=== PATIENT | female | born 1980 | race Caucasian/White ===

== ENCOUNTER 2018-07-11 13:22 | Outpatient (CLI) | payer OTHER | END 2018-07-11 15:00 | disposition home or self-care (01) | LOC: OBT 13:22 → L-D 13:22 → OBT 15:00 | DX: O26.893 Other specified pregnancy related conditions, third trimester (principal); M25.562 Pain in left knee; O09.513 Supervision of elderly primigravida, third trimester; Z3A.29 29 weeks gestation of pregnancy | CPT/HCPCS: Z7500 ==

== ENCOUNTER 2018-09-15 19:44 | Outpatient (CLI) | payer OTHER ==
[2018-09-15 20:50] LABS: ADD MAN DIFF? NO
[2018-09-15 20:53] LABS: BASOPHILS % 0.3 % (0.0-2.0); EOSINOPHILS # 0.1 10^3/ul (0.0-0.5); EOSINOPHILS % 0.8 % (0.0-7.0); HEMATOCRIT 35.6 % (37.0-47.0); HEMOGLOBIN 11.9 g/dl (12.0-16.0); LYMPHOCYTES # 1.5 10^3/ul (0.8-2.9); LYMPHOCYTES % 23.7 % (15.0-51.0); MEAN CORPUSCULAR HGB CONC 33.4 g/dl (32.0-37.0); MEAN CORPUSCULAR VOLUME 92.7 fl (82.0-101.0); MEAN PLATELET VOLUME 10.1 fl (7.4-10.4); MONOCYTE # 0.4 10^3/ul (0.3-0.9); MONOCYTES % 6.9 % (0.0-11.0); NEUTROPHIL # 4.3 10^3/ul (1.6-7.5); NEUTROPHILS % 67.7 % (39.0-77.0); PLATELET COUNT 195 10^3/UL (140-415); RED BLOOD COUNT 3.84 10^6/ul (4.20-5.40)
[2018-09-15 20:53] LABS: WHITE BLOOD COUNT 6.4 10^3/ul (4.8-10.8)
[2018-09-15 20:54] LABS: ADD UMIC YES; UR ASCORBIC ACID NEGATIVE (NEGATIVE); UR BACTERIA FEW /HPF (NONE SEEN); UR BILIRUBIN (Dip) NEGATIVE (NEGATIVE); UR BLOOD (Dip) NEGATIVE (NEGATIVE); UR CLARITY CLEAR (CLEAR); UR COLOR YELLOW (YELLOW); UR GLUCOSE (Dip) NEGATIVE (NEGATIVE); UR KETONES (Dip) NEGATIVE (NEGATIVE); UR LEUKOCYTE ESTERASE (Dip) TRACE Leu/ul (NEGATIVE); UR NITRITE (Dip) NEGATIVE (NEGATIVE); UR RBC 0 /HPF (0-5); UR SPECIFIC GRAVITY (Dip) 1.011 (1.003-1.030); UR SQUAMOUS EPITHELIAL CELL FEW /HPF (FEW); UR TOTAL PROTEIN (Dip) NEGATIVE (NEGATIVE); UR UROBILINOGEN (Dip) 1+ mg/dL (NEGATIVE); UR WBC 1 /HPF (0-5)
[2018-09-15] MEDS: LIDOCAINE/MYLANTA 40 ML BTL PO (21:08)
[2018-09-15] MEDS: ACETAMINOPHEN 325 MG TAB PO (21:08)
[2018-09-15 21:10] LABS: ALANINE AMINOTRANSFERASE 19 IU/L (13-69); ALBUMIN 3.2 g/dl (3.3-4.9); ALBUMIN/GLOBULIN RATIO 0.96; ALKALINE PHOSPHATASE 161 IU/L (42-121); ANION GAP 8 (5-13); ASPARTATE AMINO TRANSFERASE 19 IU/L (15-46); BILIRUBIN,INDIRECT 0.3 mg/dl (0-1.1); BILIRUBIN,TOTAL 0.3 mg/dl (0.2-1.3); BLOOD UREA NITROGEN 11 mg/dl (7-20); CALCIUM 9.2 mg/dl (8.4-10.2); CARBON DIOXIDE 24 mmol/L (21-31); CHLORIDE 103 mmol/L (97-110); CREATININE 0.43 mg/dl (0.44-1.00); Estimated GFR > 60 mL/min (>60); GLUCOSE 110 mg/dl (70-220); POTASSIUM 3.6 mmol/L (3.5-5.1); SODIUM 135 mmol/L (135-144); TOTAL PROTEIN 6.5 g/dl (6.1-8.1); URIC ACID 3.2 mg/dl (3.1-7.9)
== END 2018-09-15 21:50 | disposition home or self-care (01) ==
LOC: OBT 19:44 → L-D 19:45 → OBT 21:50
DX: O26.893 Other specified pregnancy related conditions, third trimester (principal); R51 Headache; R10.13 Epigastric pain; O99.343 Other mental disorders complicating pregnancy, third trimester; F41.9 Anxiety disorder, unspecified; O09.513 Supervision of elderly primigravida, third trimester; Z3A.39 39 weeks gestation of pregnancy
CPT/HCPCS: 76818; 80053; 81001; 84560; 85025

== ENCOUNTER 2018-09-16 14:16 | Inpatient (IN) | payer OTHER ==
[~2018-09-16 14:16] MED LIST: OXYTOCIN 30 UNITS/LR 500 ML BAG IV
[2018-09-16] MEDS ORDERED: METHYLERGONOVINE 0.2 MG INJ IM ×2 (16:30→23:30)
[2018-09-16] MEDS ORDERED: MISOPROSTOL 200 MCG TAB PR ×2 (16:30→23:30)
[2018-09-16] MEDS ORDERED: OXYTOCIN 30 UNITS/LR 500 ML IV ×2 (16:30→23:30)
[2018-09-16] MEDS ORDERED: CARBOPROST 250 MCG INJ IM ×2 (16:30→23:30)
[2018-09-16] MEDS: LACTATED RINGER'S 1,000 ML IV ×3 (16:31→20:40)
[2018-09-16 17:04] LABS: ADD MAN DIFF? NO
[2018-09-16 17:05] LABS: BASOPHILS % 0.2 % (0.0-2.0); EOSINOPHILS # 0.1 10^3/ul (0.0-0.5); EOSINOPHILS % 0.6 % (0.0-7.0); HEMATOCRIT 36.4 % (37.0-47.0); HEMOGLOBIN 12.4 g/dl (12.0-16.0); LYMPHOCYTES # 1.9 10^3/ul (0.8-2.9); LYMPHOCYTES % 23.3 % (15.0-51.0); MEAN CORPUSCULAR HEMOGLOBIN 31.3 pg (29.0-33.0); MEAN CORPUSCULAR HGB CONC 34.1 g/dl (32.0-37.0); MEAN CORPUSCULAR VOLUME 91.9 fl (82.0-101.0); MEAN PLATELET VOLUME 10.5 fl (7.4-10.4); MONOCYTE # 0.6 10^3/ul (0.3-0.9); MONOCYTES % 7.8 % (0.0-11.0); NEUTROPHIL # 5.4 10^3/ul (1.6-7.5); NEUTROPHILS % 67.7 % (39.0-77.0); PLATELET COUNT 204 10^3/UL (140-415); RED BLOOD COUNT 3.96 10^6/ul (4.20-5.40); RED CELL DISTRIBUTION WIDTH 14.1 % (11.5-14.5)
[2018-09-16 17:24] LABS: INR 0.89; PROTIME 12.2 Sec (11.9-14.9)
[2018-09-16 17:25] LABS: PARTIAL THROMBOPLASTIN TIME 30.3 Sec (23.0-35.0)
[2018-09-16] MEDS ORDERED: ONDANSETRON 4 MG INJ (18:27)
[2018-09-16] MEDS ORDERED: OXYTOCIN 10 UNIT INJ (18:27)
[2018-09-16] MEDS ORDERED: PHENYLephrine 10 MG INJ (18:27)
[2018-09-16] MEDS ORDERED: morphine SULFATE/PF (10 MG/10 ML) INJ (18:28)
[2018-09-16] MEDS: AZITHROMYCIN 500MG/NS (PMX) 250 ML IVPB (18:50)
[2018-09-16] MEDS: CEFAZOLIN 2 GM/50 ML (PMX) 50 ML IVPB (18:50)
[2018-09-16] MEDS ORDERED: METOCLOPRAMIDE 10 MG INJ (19:11)
[2018-09-16] MEDS ORDERED: DIPHENHYDRAMINE 50 MG INJ IV (20:30)
[2018-09-16] MEDS ORDERED: NALOXONE (0.4 MG/ML) INJ IV (20:30)
[2018-09-16] MEDS ORDERED: morphine 2 MG INJ IV (20:30)
[2018-09-16] MEDS ORDERED: EPHEDrine 50 MG INJ (20:38)
[2018-09-16] MEDS: OXYTOCIN 30 UNITS/LR 500 ML IV (21:25)
[2018-09-16] MEDS: EPHEDrine SULFATE 50 MG/5 ML SYG IV (21:33)
[2018-09-16 21:40] LABS: HEPATITIS B SURFACE ANTIGEN NEGATIVE (NEGATIVE)
[2018-09-16] MEDS: DEXTROSE 5%-LR 1,000 ML IV (23:03)
[2018-09-16] MEDS ORDERED: LANOLIN HPA 1 PKT TOP (23:30)
[2018-09-16] MEDS ORDERED: METHYLERGONOVINE 0.2 MG TAB PO (23:30)
[2018-09-17] MEDS: ONDANSETRON 4 MG INJ IV (01:51)
[2018-09-17] MEDS: OXYTOCIN 30 UNITS/LR 500 ML IV (03:11)
[2018-09-17] MEDS: KETOROLAC 30 MG INJ IV ×2 (06:13→17:17)
[2018-09-17] MEDS: DEXTROSE 5%-LR 1,000 ML IV ×3 (07:03→23:03)
[2018-09-17 08:42] LABS: ADD MAN DIFF? NO
[2018-09-17 08:48] LABS: BASOPHILS % 0.2 % (0.0-2.0); HEMATOCRIT 27.6 % (37.0-47.0); HEMOGLOBIN 9.2 g/dl (12.0-16.0); LYMPHOCYTES # 1.2 10^3/ul (0.8-2.9); LYMPHOCYTES % 8.5 % (15.0-51.0); MEAN CORPUSCULAR HEMOGLOBIN 31.3 pg (29.0-33.0); MEAN CORPUSCULAR HGB CONC 33.3 g/dl (32.0-37.0); MEAN CORPUSCULAR VOLUME 93.9 fl (82.0-101.0); MEAN PLATELET VOLUME 10.4 fl (7.4-10.4); MONOCYTE # 0.7 10^3/ul (0.3-0.9); MONOCYTES % 4.7 % (0.0-11.0); NEUTROPHIL # 12.1 10^3/ul (1.6-7.5); NEUTROPHILS % 86.1 % (39.0-77.0); PLATELET COUNT 173 10^3/UL (140-415); RED BLOOD COUNT 2.94 10^6/ul (4.20-5.40); RED CELL DISTRIBUTION WIDTH 13.9 % (11.5-14.5)
[2018-09-17 08:48] LABS: WHITE BLOOD COUNT 14.1 10^3/ul (4.8-10.8)
[2018-09-17] MEDS: SENNA/DOCUSATE NA (8.6MG/50MG) TAB PO ×2 (08:59→20:56)
[2018-09-17] MEDS ORDERED: HYDROCODONE/APAP (5/325) TAB NGT (11:00)
[2018-09-17] MEDS ORDERED: DIPHTH/TET/ACEL PERTUSS (ADULT) 0.5 ML VIAL IM* (11:00)
[2018-09-17] MEDS: LACTATED RINGER'S 1,000 ML IV (11:36)
[2018-09-17] MEDS: DOCUSATE SODIUM 100 MG CAP PO ×2 (17:20→20:56)
[2018-09-17] MEDS: POLYSACCHARIDE IRON COMPLEX CAP PO ×2 (17:21→20:57)
[2018-09-17] MEDS: HYDROCODONE/APAP (5/325) TAB GTB (21:45)
[2018-09-17] MEDS: IBUPROFEN 800 MG TAB PO (21:45)
[2018-09-17 22:20] LABS: RAPID PLASMA REAGIN NONREACTIVE (NR)
[2018-09-18] MEDS: IBUPROFEN 800 MG TAB PO ×3 (06:26→22:00)
[2018-09-18] MEDS: HYDROCODONE/APAP (5/325) TAB GTB ×3 (06:26→22:01)
[2018-09-18] MEDS: DEXTROSE 5%-LR 1,000 ML IV (07:03)
[2018-09-18] MEDS: SENNA/DOCUSATE NA (8.6MG/50MG) TAB PO ×2 (09:53→22:00)
[2018-09-18] MEDS: POLYSACCHARIDE IRON COMPLEX CAP PO ×2 (09:53→22:00)
[2018-09-18] MEDS: MAGNESIUM HYDROXIDE 30ML CUP PO (09:53)
[2018-09-18] MEDS: DOCUSATE SODIUM 100 MG CAP PO ×2 (09:53→21:00)
[2018-09-19] MEDS: DEXTROSE 5%-LR 1,000 ML IV (00:25)
[2018-09-19] MEDS: IBUPROFEN 800 MG TAB PO (05:39)
[2018-09-19] MEDS: HYDROCODONE/APAP (5/325) TAB GTB (05:39)
[2018-09-19] MEDS: POLYSACCHARIDE IRON COMPLEX CAP PO (08:46)
[2018-09-19] MEDS: SENNA/DOCUSATE NA (8.6MG/50MG) TAB PO (08:46)
[2018-09-19] MEDS: DOCUSATE SODIUM 100 MG CAP PO (08:46)
[2018-09-19] MEDS: MEASLES,MUMPS,RUBELLA VACCINE INJ SC* (09:00)
[2018-09-19] MEDS: DIPHTH/TET/ACEL PERTUSS (ADULT) 0.5 ML VIAL IM* (10:27)
== END 2018-09-19 13:05 | disposition home or self-care (01) | DRG 788 ==
LOC: OBT 14:16 → L-D 14:16 → OBT 16:00 → L-D 16:00 → PP1 22:48
PROVIDERS: Obstetrics & Gynecology
PROC: 10D00Z1 Extraction of Products of Conception, Low, Open Approach (ICD-10-PCS; principal; 2018-09-16)
DX: O32.0XX0 Maternal care for unstable lie, not applicable or unspecified (principal); O32.2XX0 Maternal care for transverse and oblique lie, not applicable or unspecified; O99.824 Streptococcus B carrier state complicating childbirth; O90.81 Anemia of the puerperium; D64.9 Anemia, unspecified; R42 Dizziness and giddiness; Z37.0 Single live birth; Z3A.38 38 weeks gestation of pregnancy; Z23 Encounter for immunization
CPT/HCPCS: 76815; 85025; 85610; 85730; 86592; 86850; 86900; 86901; 87340; 90715; 93005; 99464